=== PATIENT | female | born 1990 | race Caucasian/White ===

== ENCOUNTER 2019-11-01 17:33 | Emergency (ER) | payer SELFPAY ==
[2019-11-01] MEDS ORDERED: Clindamycin/D5W 900 mg/50 ml Premix Bag ONE (18:24)
[2019-11-01 18:29] LABS: #Eosinphils 0.1 thou/uL (0.0-0.7); #Lymphocytes 1.6 thou/uL (1.20-3.40); #Monocytes 0.7 thou/uL (0.11-0.59); #Neutrophils 8.6 thou/uL (1.40-6.50); %Basophils 0.2 % (0.0-1.0); %Eosinophils 0.5 % (0.0-10.0); %Lymphocytes 14.9 % (21.0-51.0); %Monocytes 6.5 % (0.0-10.0); %Neutrophils 77.8 % (42.0-75.0); Hemoglobin 13.9 g/dL (12.0-16.0); Mean Corpuscular HGB CONC 34.6 g/dL (32.0-36.0); Mean Corpuscular Volume 89.8 fL (78.0-98.0); Platelet Count 283 thou/uL (130-400); RBC Distribution Width 11.1 % (11.5-14.5); Red Blood Cell (RBC) Count 4.47 mill/uL (4.20-5.40)
--- NOTE | 2019-11-01 18:32 | RAD ---
RIGHT TIBIA AND FIBULA TWO VIEWS: 11/01/19 HISTORY: Swelling and pain of tib/fib region. There is no signs of fracture, dislocation or other bony findings. IMPRESSION: Negative right tib/fib. POS: [facility]
[2019-11-01 18:45] LABS: ALT (SGPT) 14 U/L (8-55); AST (SGOT) 14 U/L (5-34); Albumin 4.1 g/dL (3.5-5.0); Alkaline Phosphatase 113 U/L (40-110); Anion Gap 10 mmol/L (10-20); BUN (Urea Nitrogen) 9 mg/dL (7.0-18.7); Bilirubin, Total 0.5 mg/dL (0.2-1.2); Calc. Creatinine Clearance 0 mL/min (70-130); Calcium 9.3 mg/dL (7.8-10.44); Carbon Dioxide 28 mmol/L (22-29); Chloride 101 mmol/L (98-107); Estimated GFR-MDRD Greater than 90; Globulin 3.3 g/dL (2.4-3.5); Glucose 86 mg/dL (70-105); Potassium 3.7 mmol/L (3.5-5.1); Protein, Total 7.4 g/dL (6.0-8.3); Sodium 135 mmol/L (136-145)
== END 2019-11-01 19:30 | disposition home or self-care (01) ==
LOC: ERS 17:33
DX: L03.115 Cellulitis of right lower limb (principal); F11.10 Opioid abuse, uncomplicated; F90.9 Attention-deficit hyperactivity disorder, unspecified type; F41.9 Anxiety disorder, unspecified; F17.210 Nicotine dependence, cigarettes, uncomplicated
CPT/HCPCS: 80053; 85025; 87040; 96365; J3490

== ENCOUNTER 2020-07-15 01:00 | Emergency (ER) | payer SELFPAY ==
--- NOTE | 2020-07-15 07:36 | RAD ---
Exam:Right shoulder 3 views HISTORY: Material. Fall off ladder. Pain. COMPARISON: None FINDINGS: Glenohumeral joint space is preserved. No fracture or dislocation. Visualized right clavicl e and ribs do not demonstrate any posttraumatic change. IMPRESSION: No dislocation or fracture.
--- NOTE | 2020-07-15 07:42 | RAD ---
EXAM: Single view of the chest HISTORY: Right shoulder pain after fall from a ladder COMPARISON: None FINDINGS: Single view of the chest shows a normal sized cardiomediastinal silhouette. There is no matteo dence of consolidation, mass, or pleural effusion. No acute osseous abnormality. IMPRESSION: No evidence of acute cardiopulmonary disease
== END 2020-07-15 01:50 | disposition home or self-care (01) ==
LOC: ERS 01:00
DX: S43.51XA Sprain of right acromioclavicular joint, initial encounter (principal); F41.9 Anxiety disorder, unspecified; F90.9 Attention-deficit hyperactivity disorder, unspecified type; F17.210 Nicotine dependence, cigarettes, uncomplicated; W11.XXXA Fall on and from ladder, initial encounter
CPT/HCPCS: 71045